=== PATIENT | male | born 1955 | race Caucasian/White ===

== ENCOUNTER 2025-07-27 18:19 | Emergency (ER) | payer OTHER ==
[~2025-07-27] VITALS: Ht 170.2 cm; Wt 85.0 kg
[2025-07-27 18:34] VITALS: TEMP 98.2
[2025-07-27 19:00] LABS: GLUCOMETER DEV NAME(LOC) ERT.7; GLUCOSE,POINT OF CARE 182 MG/DL (70-110)
[2025-07-27] MEDS ORDERED: DOXY-354 PO (20:58)
[2025-07-27] MEDS ORDERED: CEPH-558 PO (20:58)
[2025-07-27] MEDS: DOXYCYCLINE HYCLATE 100 MG TABLET PO ONE (21:13)
[2025-07-27] MEDS: CEPHALEXIN MONOHYDRATE 500 MG CAPSULE PO ONE (21:13)
[2025-07-27 21:29] VITALS: BP 114/60; PULSE 76; RESP 16; O2SAT 97
== END 2025-07-27 21:47 | disposition home or self-care (01) ==
LOC: EMS 18:19
DX: L03.115 Cellulitis of right lower limb (principal); L02.415 Cutaneous abscess of right lower limb; E11.9 Type 2 diabetes mellitus without complications; E78.00 Pure hypercholesterolemia, unspecified; I10 Essential (primary) hypertension; F32.A Depression, unspecified; Z98.890 Other specified postprocedural states
CPT/HCPCS: 82962; 99284